=== PATIENT | female | born 1990 | race African-American/Black ===

== ENCOUNTER 2019-10-15 23:08 | Inpatient (IN) | payer MEDICAID ==
[~2019-10-15] VITALS: Ht 160 cm; Wt 87.2 kg
[2019-10-16 00:40] LABS: BASOPHILS % (AUTO) 0.6 % (0.0-2.0); EOSINOPHILS % (AUTO) 1.8 % (1.0-6.0); HEMATOCRIT 42.1 % (36-46); HEMOGLOBIN 13.8 g/dL (12.0-16.0); LYMPHOCYTES # (AUTO) 2.7 K/uL (1.0-4.8); LYMPHOCYTES % (AUTO) 28.5 % (22.0-44.0); MEAN CORPUSCULAR HEMOGLOBIN 27.2 pg (26.0-34.0); MEAN CORPUSCULAR HGB CONC 32.8 G/dL (31.0-37.0); MEAN CORPUSCULAR VOLUME 83 fL (80-100); MONOCYTES # (AUTO) 0.6 K/uL (0.1-1.0); MONOCYTES % (AUTO) 6.1 % (2.0-9.0); NEUTROPHILS # (AUTO) 5.9 K/uL (1.8-7.7); PLATELET COUNT (AUTO) 382 K/uL (150-450); RED BLOOD CELL COUNT(AUTO) 5.08 MIL/uL (4.00-5.20); RED CELL DISTRIBUTION WIDTH 14.3 % (11.5-14.5)
[2019-10-16 00:51] LABS: ANION GAP 10 mmol/L (8-16); CALCIUM, TOTAL 9.4 mg/dL (8.8-10.5); CARBON DIOXIDE 27 mmol/L (22-29); CHLORIDE 103 mmol/L (98-107); CREATININE 0.96 mg/dL (0.60-1.30); GLOMERULAR FILTR. RATE CALC > 60 mL/min (>60); GLUCOSE,RANDOM 93 mg/dL (70-110); POTASSIUM 3.9 mmol/L (3.5-5.1); SODIUM SERUM 140 mmol/L (136-145); UREA NITROGEN, BLOOD 10 mg/dL (7-18)
[2019-10-16 01:02] LABS: ALANINE AMINOTRANSFERASE 16 U/L (12-78); ALBUMIN 4.3 g/dL (3.4-5.0); ALKALINE PHOSPHATASE 71 U/L (46-116); ASPARTATE AMINOTRANSFERASE 12 U/L (15-37); BILIRUBIN,TOTAL 0.3 mg/dL (0.1-1.0); HCG,QUANTITATIVE < 1 mIU/mL (0-6); TOTAL PROTEIN, SERUM 8.1 g/dL (6.4-8.2)
[2019-10-16 04:03] VITALS: BP 125/82
[2019-10-16 09:23] VITALS: BP 131/86
[2019-10-16] MEDS: SERTRALINE HCL 50 MG TABLET PO SCH (14:23)
[2019-10-16 17:07] VITALS: BP 122/78
[2019-10-17 07:39] LABS: CHOL/HDL RATIO 3.9 (3.9-5.7)
[2019-10-17 08:00] VITALS: BP 131/78
[2019-10-17] MEDS: SERTRALINE HCL 50 MG TABLET PO SCH (08:31)
[2019-10-17 16:00] VITALS: BP 112/71
[2019-10-18 02:07] VITALS: BP 127/73
[2019-10-18] MEDS: SERTRALINE HCL 50 MG TABLET PO SCH (09:00)
[2019-10-18 09:38] VITALS: BP 140/91
[2019-10-18 16:48] VITALS: BP 142/79
[2019-10-18] MEDS: ZOLPIDEM TARTRATE 10 MG TABLET PO PRN (20:03)
[2019-10-19] MEDS: ARIPiprazole 5 MG TABLET PO SCH (08:19)
[2019-10-19] MEDS: SERTRALINE HCL 50 MG TABLET PO SCH (08:19)
[2019-10-19] MEDS ORDERED: ACETAMINOPHEN 325 MG TABLET PO PRN (20:15)
[2019-10-20 08:00] VITALS: BP 122/74
[2019-10-20] MEDS: ARIPiprazole 5 MG TABLET PO SCH (09:14)
[2019-10-20] MEDS: SERTRALINE HCL 50 MG TABLET PO SCH (09:14)
[2019-10-20] MEDS ORDERED: DOCUSATE SODIUM 100 MG CAPSULE PO PRN (17:30)
[2019-10-20] MEDS ORDERED: MAGNESIUM HYDROXIDE SUSPENSION 30 ML UDCUP PO PRN (17:30)
[2019-10-20] MEDS ORDERED: ONDANSETRON HCL 4 MG TABLET PO PRN (17:30)
[2019-10-20] MEDS ORDERED: PETROLATUM,WHITE 28 GM JELLY TP PRN (17:30)
[2019-10-20] MEDS ORDERED: ALBUTEROL SULFATE HFA 90 MCG/PUFF 8 GM INHALER IH PRN (17:30)
[2019-10-20] MEDS ORDERED: ACETAMINOPHEN 325 MG TABLET PO PRN (17:30)
[2019-10-20] MEDS ORDERED: CloNIDine HCL 0.1 MG TABLET PO PRN (17:30)
[2019-10-20] MEDS ORDERED: LOPERAMIDE HCL 2 MG CAPSULE PO PRN (17:30)
[2019-10-20] MEDS ORDERED: NICOTINE 14 MG/24 HOUR PATCH TD PRN (17:30)
[2019-10-20] MEDS ORDERED: IBUPROFEN 400 MG TABLET PO PRN (17:30)
[2019-10-20] MEDS ORDERED: GuaiFENesin/D-METHORPHAN [SUGAR-FREE] 200-20MG/10 ML SYRUP UDCUP PO PRN (17:30)
[2019-10-20] MEDS ORDERED: MAG HYDROX/AL HYDROX/SIMETH ES 30 ML SUSPENSION UDCUP PO PRN (17:30)
[2019-10-20 21:36] VITALS: BP 130/104
[2019-10-20] MEDS: ZOLPIDEM TARTRATE 10 MG TABLET PO PRN (23:03)
[2019-10-21 09:00] VITALS: BP 133/79
[2019-10-21] MEDS: SERTRALINE HCL 50 MG TABLET PO SCH (10:22)
[2019-10-21] MEDS: ARIPiprazole 5 MG TABLET PO SCH (10:23)
[2019-10-21 16:48] VITALS: BP 124/80
[2019-10-21] MEDS: QUEtiapine FUMARATE 100 MG TABLET PO PRN (20:10)
[2019-10-22] MEDS: ARIPiprazole 5 MG TABLET PO SCH (09:16)
[2019-10-22] MEDS: SERTRALINE HCL 50 MG TABLET PO SCH (09:16)
[2019-10-22 09:51] VITALS: BP 136/88
[2019-10-22] MEDS: QUEtiapine FUMARATE 100 MG TABLET PO PRN ×2 (12:21→20:20)
[2019-10-22] MEDS: ZOLPIDEM TARTRATE 10 MG TABLET PO PRN (22:27)
[2019-10-23] MEDS: SERTRALINE HCL 50 MG TABLET PO SCH (08:38)
[2019-10-23] MEDS: ARIPiprazole 5 MG TABLET PO SCH (08:38)
[2019-10-23 09:17] VITALS: BP 125/98
[2019-10-23 17:45] VITALS: BP 135/67
[2019-10-23] MEDS: QUEtiapine FUMARATE 100 MG TABLET PO PRN (20:06)
[2019-10-23] MEDS: ZOLPIDEM TARTRATE 10 MG TABLET PO PRN (21:42)
[2019-10-24 08:30] VITALS: BP 135/95
[2019-10-24] MEDS: ARIPiprazole 5 MG TABLET PO SCH (08:30)
[2019-10-24] MEDS: SERTRALINE HCL 50 MG TABLET PO SCH (08:30)
[2019-10-24] MEDS: QUEtiapine FUMARATE 100 MG TABLET PO PRN ×2 (11:45→16:52)
[2019-10-24 17:18] VITALS: BP 127/88
[2019-10-25] MEDS: ARIPiprazole 5 MG TABLET PO SCH (08:17)
[2019-10-25] MEDS: SERTRALINE HCL 50 MG TABLET PO SCH (08:18)
[2019-10-25 10:07] VITALS: BP 97/51
[2019-10-25] MEDS: QUEtiapine FUMARATE 100 MG TABLET PO PRN ×2 (14:46→21:29)
[2019-10-25 16:58] VITALS: BP 127/75
[2019-10-25] MEDS: TraZODone HCL 50 MG TABLET PO SCH (20:07)
[2019-10-26] MEDS: QUEtiapine FUMARATE 100 MG TABLET PO PRN ×2 (05:23→12:16)
[2019-10-26 08:57] VITALS: BP 115/57
[2019-10-26] MEDS: ARIPiprazole 5 MG TABLET PO SCH (10:12)
[2019-10-26] MEDS: SERTRALINE HCL 50 MG TABLET PO SCH (10:12)
[2019-10-26] MEDS: LORazepam 2 MG TABLET PO PRN (15:52)
[2019-10-26 16:48] VITALS: BP 140/74
[2019-10-26] MEDS: TraZODone HCL 50 MG TABLET PO SCH (20:23)
[2019-10-27] MEDS: QUEtiapine FUMARATE 100 MG TABLET PO PRN ×2 (02:19→08:35)
[2019-10-27] MEDS: SERTRALINE HCL 50 MG TABLET PO SCH (08:35)
[2019-10-27] MEDS: LORazepam 2 MG TABLET PO PRN (08:35)
[2019-10-27] MEDS: ARIPiprazole 5 MG TABLET PO SCH (08:35)
[2019-10-27 08:54] VITALS: BP 127/71
[2019-10-27] MEDS ORDERED: ARIP5TAB8 PO (12:01)
[2019-10-27] MEDS ORDERED: SERT50TA12 PO (12:02)
[2019-10-27] MEDS ORDERED: TRAZ-252 PO (12:03)
== END 2019-10-27 17:10 | disposition home or self-care (01) | DRG 885 ==
LOC: EMS 23:08 → 3EI 10-16 01:07
PROVIDERS: ADMIT Psychiatry & Neurology Child & Adolescent Psychiatry; ATTEND Psychiatry & Neurology Child & Adolescent Psychiatry
DX: F32.3 Major depressive disorder, single episode, severe with psychotic features (principal); R45.851 Suicidal ideations; F41.9 Anxiety disorder, unspecified; R03.0 Elevated blood-pressure reading, without diagnosis of hypertension; Z91.14 Patient's other noncompliance with medication regimen
CPT/HCPCS: G0480